=== PATIENT | female | born 1995 | race Caucasian/White ===

== ENCOUNTER 2016-09-01 09:58 | Emergency (ER) | payer OTHER ==
[~2016-09-01] VITALS: Ht 170.2 cm; Wt 52.0 kg
[2016-09-01 09:58] VITALS: BP 121/73; PULSE 83; RESP 14; TEMP 98.2; O2SAT 100
--- NOTE | 2016-09-01 10:29 | PD ---
HPI Chief Complaint: Complaint Time Seen by Provider: 10:25 Travel History International Travel<30 days: No Contact w/Intl Traveler<30days: No Traveled to known affect area: No History of Present Illness HPI Patient's a 20-year-old female presenting to the emergency department for evaluation of dysuria, frequency, dribbling. Patient states her symptoms started on Wednesday, she attempted to use Azo [id number] with no relief of her symptoms. She denies any abdominal pain, nausea, vomiting, back pain. She denies any vaginal discharge or bleeding. PFSH Past Medical History Medical History: Denies Significant Hx ?: Not Family History Family History: Negative Social History Alcohol Use: No Tobacco Use: No Substance Use: No Allergies-Medications (Allergen,Severity, Reaction): Coded Allergies: Amoxicillin (Verified Allergy, Intermediate, itchy rash, 09/01/16) Reported Meds & Prescriptions Reported Meds & Active Scripts Active Pyridium (Phenazopyridine HCl) 100 Mg Tab 100 Mg PO Q8H PRN 3 Days Nitrofurantoin Monohydrate Macrocrystals (Nitrofurantoin Monoh/Nitrofur Macro) 100 Mg Cap 100 Mg PO BID 7 Days Review of Systems Except as stated in HPI: all other systems reviewed are Neg General / Constitutional: No: Fever, Chills Cardiovascular: No: Chest Pain or Discomfort Respiratory: No: Shortness of Breath Gastrointestinal: No: Nausea, Abdominal Pain Genitourinary: Positive: Urgency, Frequency, Dysuria, Hesitancy, No: Pelvic Pain, Discharge, Vaginal Bleeding Physical Exam Narrative GENERAL: Well-nourished, well-developed patient. SKIN: Focused skin assessment warm/dry. HEAD: Normocephalic. EYES: No scleral icterus. No injection or drainage. NECK: Supple, trachea midline. No JVD or lymphadenopathy. CARDIOVASCULAR: Regular rate and rhythm without murmurs, gallops, or rubs. RESPIRATORY: Breath sounds equal bilaterally. No accessory muscle use. GASTROINTESTINAL: Abdomen soft, non-tender, nondistended. Positive bowel sounds , no rebound, no guarding MUSCULOSKELETAL: No cyanosis, or edema. BACK: Nontender without obvious deformity. No CVA tenderness. Data Data Last Documented VS Vital Signs Date Time Temp Pulse Resp B/P Pulse Ox O2 Delivery O2 Flow Rate FiO2 09/01/16 09:58 98.2 83 14 121/73 100 Orders Urinalysis - C+S If Indicated (09/01/16 10:10) Ed Urine Pregnancytest Poc (09/01/16 10:10) Phenazopyridine (Pyridium) (09/01/16 10:30) Urine Culture (09/01/16 10:20) Labs Laboratory Tests Test 09/01/16 10:20 Urine Color RED Urine Turbidity CLOUDY Urine pH 7.5 Urine Specific [place] 1.019 Urine Protein 100 mg/dL Urine Glucose (UA) NEG mg/dL Urine Ketones NEG mg/dL Urine Occult Blood LARGE Urine Nitrite NEG Urine Bilirubin NEG Urine Urobilinogen LESS THAN 2.0 MG/DL Urine Leukocyte Esterase LARGE Urine RBC /hpf Urine WBC /hpf Urine Bacteria FEW /hpf Microscopic Urinalysis Comment CULTURE INDICATED MDM Medical Decision Making Medical Screen Exam Complete: Yes Emergency Medical Condition: Yes Interpretation(s) Laboratory Tests Test 09/01/16 10:20 Urine Color RED Urine Turbidity CLOUDY Urine pH 7.5 Urine Specific [place] 1.019 Urine Protein 100 mg/dL Urine Glucose (UA) NEG mg/dL Urine Ketones NEG mg/dL Urine Occult Blood LARGE Urine Nitrite NEG Urine Bilirubin NEG Urine Urobilinogen LESS THAN 2.0 MG/DL Urine Leukocyte Esterase LARGE Urine RBC /hpf Urine WBC /hpf Urine Bacteria FEW /hpf Microscopic Urinalysis Comment CULTURE INDICATED Vital Signs Date Time Temp Pulse Resp B/P Pulse Ox O2 Delivery O2 Flow Rate FiO2 09/01/16 09:58 98.2 83 14 121/73 100 Differential Diagnosis Urinary tract infection versus pyelonephritis versus versus STD versus other Narrative Course Patient is a 20 year old female presenting with urinary complaints and a been ongoing since Wednesday. Symptoms are unrelieved by Azo [id number]. She has no abdominal pain or vaginal discharge. Patient is in a monogamous relationship. Urine test performed in the emergency department is negative. Urinalysis ordered and pending. Pyridium by mouth 1 dose ordered Urinalysis is indicative of urinary tract infection. Patient was encouraged to maintain/increased fluid intake. She is encouraged to the full course of Atarax as prescribed. She is encouraged follow-up with primary care return to emergency department for new or worsening symptoms. Patient verbalized understanding of these instructions. Patient is stable for discharge. Diagnosis Primary Impression: Urinary tract infection Qualified Code: N39.0 - Urinary tract infection with hematuria, site unspecified Referrals: [facility] Primary Care Physician Patient Instructions: General Instructions, Urinary Tract Infection in Women ( ED) Additional Instructions: Follow-up with your primary doctor Increased fluid intake Complete full course of antibiotics as prescribed Return to emergency department for any new or worsening symptoms Med/Other Pt SpecificInfo: Prescription(s) given Scripts Phenazopyridine (Pyridium)100 Mg [id number] Mg PO Q8H PRN (DYSURIA) 3 Days Ref 0 Prov:Berkley Hernandez 09/01/16 Nitrofurantoin Monohydrate Macrocrystals 100 Mg [id number] Mg PO BID 7 Days Ref 0 Prov:Berkley Hernandez 09/01/16 Disposition: 01 DISCHARGE HOME Condition: Stable Berkley Hernandez September 01, 2016 10:29
[2016-09-01] MEDS ORDERED: PHENAZOPYRIDINE HCL 200 MG TAB PO ONE (10:30)
[2016-09-01 11:03] LABS: BACTERIA, URINE FEW /hpf; BLOOD, URINE LARGE (NEG); COMMENT (UR) CULTURE INDICATED; CULTURE IF INDICATED CULTURE INDICATED; GLUCOSE,URINE NEG (NEG); KETONE, URINE NEG (NEG); NITRITE,URINE NEG (NEG); PH, URINE 7.5 (5.0-8.5)
[2016-09-01 11:10] LABS: URINE COLOR RED (YELLW/STRAW)
[2016-09-01] MEDS ORDERED: NITR100C4 PO (11:26)
[2016-09-01] MEDS ORDERED: PHEN0.4T PO (11:26)
== END 2016-09-01 12:01 | disposition home or self-care (01) ==
LOC: NEPK 09:58
DX: N39.0 Urinary tract infection, site not specified (principal); B96.20 Unspecified Escherichia coli [E. coli] as the cause of diseases classified elsewhere; R31.9 Hematuria, unspecified
CPT/HCPCS: 81001; 84703; 87077; 87086; 87186; 99284